=== PATIENT | female | born 1950 | race Caucasian/White ===

== ENCOUNTER 2024-12-03 10:36 | Day surgery (SDC) | payer MEDICARE, OTHER ==
[~2024-12-03 10:36] MED LIST: Propofol 200 MG/20 ML SDV ONE
[2024-12-03] MEDS: Lactated Ringers 1,000 ML IV SCH (10:52)
[2024-12-03] MEDS ORDERED: fentaNYL 100 MCG/2 ML SDV ONE (10:56)
== END 2024-12-03 14:16 | disposition home or self-care (01) ==
LOC: VM.SDS 10:36
PROVIDERS: ATTEND Family Medicine
DX: Z12.11 Encounter for screening for malignant neoplasm of colon (principal); D12.6 Benign neoplasm of colon, unspecified; K57.30 Diverticulosis of large intestine without perforation or abscess without bleeding; K64.8 Other hemorrhoids; I10 Essential (primary) hypertension; F33.0 Major depressive disorder, recurrent, mild; E78.00 Pure hypercholesterolemia, unspecified; Z79.899 Other long term (current) drug therapy
CPT/HCPCS: 00811; 45380; 99100; J2704; J3010; J7120; 88305